=== PATIENT | female | born 2000 | race Caucasian/White ===

== ENCOUNTER 2020-12-02 20:26 | Emergency (ER) | payer OTHER ==
[~2020-12-02] VITALS: Ht 160 cm; Wt 77.1 kg
[2020-12-02] MEDS ORDERED: AUGMENTIN 500-1 EACH PO (20:53)
[2020-12-02] MEDS ORDERED: MOTRIN200 MG PO (20:53)
[2020-12-02] MEDS ORDERED: TRAMADOL HCL 50 MG TAB PO ONE (23:15)
== END 2020-12-02 21:25 | disposition home or self-care (01) ==
LOC: FSED 20:41
DX: S61.451A Open bite of right hand, initial encounter (principal); W54.0XXA Bitten by dog, initial encounter; Y92.008 Other place in unspecified non-institutional (private) residence as the place of occurrence of the external cause; F17.210 Nicotine dependence, cigarettes, uncomplicated
CPT/HCPCS: 99283